=== PATIENT | female | born 1955 | race Caucasian/White ===

== ENCOUNTER 2017-11-10 09:34 | Emergency (ER) | payer OTHER ==
[2017-11-10 09:40] VITALS: BP 162/97; PULSE 79; TEMP 98.1; BMI 41.5
--- NOTE | 2017-11-10 11:56 | PDOC ---
History of Present Illness - General Chief Complaint: Injury Stated Complaint: FALL, PAIN Time Seen by Provider: 11/10/17 10:01 History Source: Patient Exam Limitations: No Limitations - History of Present Illness Initial Comments: 11/10/17 11:53 61 yr female no pmhx states she tripped and fell one week ago injured her left side ribs. Pt has worsening pain to the left side. No SOB , pain is with sneezing or coughing. no abd pain. Past History - Past Medical History Allergies/Adverse Reactions: Allergies Allergy/AdvReac Type Severity Reaction Status Date / Time Penicillins Allergy Severe ANAPHYLAXIS Verified 11/10/17 09:36 EGGS AdvReac Intermediate Nausea Uncoded 11/10/17 09:36 SHRIMP AdvReac Intermediate Swelling Uncoded 11/10/17 09:36 Home Medications: Ambulatory Orders Albuterol Sulfate Inhaler - [Ventolin HFA Inhaler -] 2 inh IH PRN PRN 12/29/12 Furosemide [Lasix -] 20 mg PO DAILY 12/29/12 Montelukast Na [Singulair -] 10 mg PO HS 12/29/12 Omeprazole [Prilosec (RX)] 20 mg PO DAILY 12/29/12 Zolpidem Tartrate [Ambien] 10 mg PO PRN 12/29/12 Calcium Carbonate/Vitamin D3 [Calcium 500 + D Tablet] 1 tab PO DAILY 08/08/13 Pramipexole Dihydrochloride [Mirapex -] 0.25 mg PO BID 08/08/13 Amlodipine Besylate [Norvasc -] 10 mg PO DAILY #30 tablet 08/11/13 Lactobacillus Acidophilus [Acidophilus] 1 each PO TID #30 capsule 08/11/13 Enalapril Maleate [Vasotec -] 20 mg PO DAILY 11/10/17 Oxycodone HCl/Acetaminophen [Percocet 5-325 mg Tablet] 1 tab PO Q6H PRN #12 tab MDD 4 11/10/17 Anemia: No Asthma: Yes Cancer: No Cardiac Disorders: No CVA: No COPD: No CHF: No Dementia: No Diabetes: No GI Disorders: No Disorders: No HTN: Yes Hypercholesterolemia: Yes Liver Disease: No Seizures: No Thyroid Disease: No Other medical history: ARITHRITIS - Surgical History Abdominal Surgery: No Appendectomy: No Cardiac Surgery: No Cholecystectomy: No Lung Surgery: No Neurologic Surgery: Yes (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) Orthopedic Surgery: No - Suicide/Smoking/Psychosocial Hx Smoking Status: No Smoking History: Never smoked Have you smoked in the past 12 months: No Number of Cigarettes Smoked Daily: 0 Information on smoking cessation initiated: No Hx Alcohol Use: Yes (beer) Drug/Substance Use Hx: No Substance Use Type: Alcohol Trauma Specific PMHX - Complaint Specific PMHX Arthritis: No Back Injury: No Neck Injury: No Hx Sacro Iliac Joint Dysfunction: No Review of Systems - Review of Systems Able to Perform ROS?: Yes Is the patient limited Ukrainian proficient: No Constitutional: No: Symptoms Reported, Unintentional Wgt. Loss HEENTM: No: Symptoms Reported Respiratory: No: Symptoms reported Cardiac (ROS): No: Symptoms Reported ABD/GI: No: Symptoms Reported : No: Symptoms Reported Musculoskeletal: Yes: Symptoms Reported, See HPI *Physical Exam - Vital Signs Last Vital Signs Temp Pulse Resp BP Pulse Ox 98.1 F 79 18 162/97 100 11/10/17 09:37 11/10/17 09:37 11/10/17 09:37 11/10/17 09:37 11/10/17 09:37 - Physical Exam General Appearance: Yes: Nourished, Appropriately Dressed HEENT: positive: EOMI, TUAN Neck: positive: Supple. negative: Tender, Lymphadenopathy (R), Lymphadenopathy (L), Rigidity Respiratory/Chest: positive: Chest Tender (left lateral under breast area ), Lungs Clear, Normal Breath Sounds. negative: Respiratory Distress, Accessory Muscle Use, Labored Respiration, Decreased Breath Sounds, Paradoxal Breathing, Crackles, Rales, Rhonchi, Stridor, Wheezing, Hyperresonant, Dullness, Plerual Rub Cardiovascular: positive: Regular Rhythm, Regular Rate Musculoskeletal: positive: Normal Inspection Extremity: positive: Normal Capillary Refill, Normal Inspection, Normal Range of Motion Integumentary: positive: Normal Color, Dry, Warm Neurologic: positive: Fully Oriented, Alert, Normal Mood/Affect, Normal Response , Motor Strength 5/5 ED Treatment Course - RADIOLOGY Radiology Studies Ordered: Category Date Time Status CHEST CT WITHOUT CONTRAST [CT] Stat CT Scan 11/10/17 11:08 Ordered CHEST PA & LAT [RAD] Stat Radiology 11/10/17 10:12 Completed RIBS-LEFT SIDE [RAD] Stat Radiology 11/10/17 10:11 Completed Medical Decision Making - Medical Decision Making 11/10/17 11:55 cc: left ribs, no bruising or deformity no palpable crepitus, lungs RE CTA bilaterally will get xrays to r/o fracture pt refused pain meds at this time xray shows 3-4 rib fractures no pneumothorax will get ct chest pt understands the plan of care 11/10/17 13:43 case discussed with ER attending, CT results discussed pt is stable has apt friday with her PMD will give percocet for pain I have discussed with the patient how to take the percocet safely. *DC/Admit/Observation/Transfer Diagnosis at time of Disposition: Ribs, multiple fractures Qualifiers: Encounter type: initial encounter Fracture type: closed Laterality: left Qualified Code(s): S22.42XA - Multiple fractures of ribs, left side, initial encounter for closed fracture - Discharge Dispostion Disposition: HOME Condition at time of disposition: Good - Prescriptions Prescriptions: Oxycodone HCl/Acetaminophen [Percocet 5-325 mg Tablet] 1 tab PO Q6H PRN #12 tab MDD 4 PRN Reason: Severe Pain - Referrals Referrals: Palmira Blanton MD [Primary Care Provider] - - Patient Instructions Additional Instructions: use the incentive spirometer as shown four times a day take percocet for severe pain follow up Friday as planned with your doctor Return to ER for any worsening pain - Post Discharge Activity
== END 2017-11-10 13:43 | disposition home or self-care (01) ==
LOC: JERFT 09:34
DX: S22.42XA Multiple fractures of ribs, left side, initial encounter for closed fracture (principal); W18.39XA Other fall on same level, initial encounter; Y93.89 Activity, other specified; Y92.9 Unspecified place or not applicable; J45.909 Unspecified asthma, uncomplicated; I10 Essential (primary) hypertension; E78.00 Pure hypercholesterolemia, unspecified
CPT/HCPCS: 71020-TC; 71101-TC; 71250-TC; 99281-25

== ENCOUNTER 2019-01-10 09:49 | Emergency (ER) | payer OTHER ==
[2019-01-10 10:06] VITALS: BP 194/72; PULSE 76; TEMP 98.1; BMI 41.6
[2019-01-10] MEDS ORDERED: IBUPROFEN 600 MG TABLET (FP) PO ONE ×2 (10:51→10:54)
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
== END 2019-01-10 11:36 | disposition home or self-care (01) ==
LOC: JERFT 09:49
DX: S13.4XXA Sprain of ligaments of cervical spine, initial encounter (principal); M62.830 Muscle spasm of back; V44.6XXA Car passenger injured in collision with heavy transport vehicle or bus in traffic accident, initial encounter; Y92.488 Other paved roadways as the place of occurrence of the external cause; W22.19XA Striking against or struck by other automobile airbag, initial encounter; Y93.89 Activity, other specified; Y99.8 Other external cause status; J45.909 Unspecified asthma, uncomplicated; I10 Essential (primary) hypertension; E78.00 Pure hypercholesterolemia, unspecified; Z88.0 Allergy status to penicillin; Z91.013 Allergy to seafood
CPT/HCPCS: 71101-TC-RT-FY; 99281-25

== ENCOUNTER 2019-01-10 12:11 | Emergency (ER) | payer OTHER ==
[2019-01-10 12:35] VITALS: BP 189/84; PULSE 79; TEMP 98.1; BMI 41.6
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
== END 2019-01-10 13:51 | disposition home or self-care (01) ==
LOC: JERFT 12:11
PROC: 2W3RXYZ Immobilization of Left Lower Leg using Other Device (ICD-10-PCS; principal; 2019-01-10)
DX: S83.005A Unspecified dislocation of left patella, initial encounter (principal); V44.6XXA Car passenger injured in collision with heavy transport vehicle or bus in traffic accident, initial encounter; Y92.488 Other paved roadways as the place of occurrence of the external cause; Y93.89 Activity, other specified; Y99.8 Other external cause status; J45.909 Unspecified asthma, uncomplicated; I10 Essential (primary) hypertension; E78.00 Pure hypercholesterolemia, unspecified; Z91.013 Allergy to seafood; Z88.0 Allergy status to penicillin
CPT/HCPCS: 73562-TC-LT-FY; 99281-25